=== PATIENT | female | born 1980 | race Hispanic/Latino ===

== ENCOUNTER 2019-02-05 18:39 | Emergency (ER) | payer SELFPAY ==
[2019-02-05 19:16] LABS: APPEARANCE,URINE Cloudy (CLEAR); BILIRUBIN,URINE Negative (NEGATIVE); COLOR,URINE Yellow (YELLOW); GLUCOSE, URINE (UA) Negative (NEGATIVE); KETONES,URINE Negative (NEGATIVE); LEUKOCYTE ESTERASE ,URINE Negative (NEGATIVE); NITRATE,URINE Negative (NEGATIVE); OCCULT BLOOD,URINE Negative (NEGATIVE); PROTEIN,URINE Negative (NEGATIVE); UROBILINOGEN,URINE 0.2 mg/dL (0.2-1.0)
[2019-02-05 19:22] LABS: HCG,QUAL RESULT NEGATIVE (NEGATIVE)
[2019-02-05 19:30] LABS: BACTERIA,URINE Few /HPF (None Seen); RBC,URINE 0-1 /HPF (0-1); WBC,URINE 0-1 /HPF (0-1)
[2019-02-05] MEDS ORDERED: IOHEXOL-350 75 ML VIAL IV ONE (20:34)
[2019-02-05 20:36] LABS: BASOPHILS % (AUTO) 0.3 % (0.0-5.0); EOSINOPHILS % (AUTO) 2.4 % (0.0-8.0); HEMATOCRIT 39.2 % (36-48); LYMPHOCYTES % (AUTO) 13.3 % (21.0-51.0); MEAN CORPUSCULAR HEMOGLOBIN 29.5 pg (27.0-33.0); MEAN CORPUSCULAR HGB CONC 32.8 g/dL (32.0-36.0); MEAN CORPUSCULAR VOLUME 90.1 fL (79-99); MONOCYTES % (AUTO) 6.2 % (3.0-13.0); NEUTROPHILS % (AUTO) 77.8 % (40.0-77.0); PLATELET COUNT (AUTO) 283 K/uL (130-400); RED BLOOD CELL COUNT(AUTO) 4.36 MIL/uL (4.00-5.50); RED CELL DISTRIBUTION WIDTH 14.6 % (11.0-15.5); WHITE BLOOD COUNT (AUTO) 12.8 K/uL (4.8-10.8)
[2019-02-05] MEDS ORDERED: KETOROLAC TROMETHAMINE 30MG/ML ONE (20:41)
[2019-02-05] MEDS ORDERED: SODIUM CHLORIDE 0.9% 1000ML 1,000 ML IV ONE (20:41)
[2019-02-05] MEDS ORDERED: ONDANSETRON HCL 4 MG/2 ML VIAL ONE (20:41)
[2019-02-05] MEDS ORDERED: DICYCLOMINE HCL 10 MG/ML 2ML AMP IM ONE (20:41)
[2019-02-05 20:44] LABS: CREATININE 0.9 mg/dL (0.5-1.5); POTASSIUM 3.8 mmol/L (3.5-5.1)
[2019-02-05 20:45] LABS: INR 0.9 (0.85-1.15); PARTIAL THROMBOPLASTIN TIME 26.6 SEC (26.3-35.5); PROTHROMBIN TIME 9.5 SEC (9.6-11.6)
[2019-02-05 20:48] LABS: ALBUMIN 3.8 g/dL (3.5-5.0); BILIRUBIN,TOTAL 0.3 mg/dL (0.2-1.0)
== END 2019-02-05 23:32 | disposition home or self-care (01) ==
LOC: EDH 18:39
DX: K80.80 Other cholelithiasis without obstruction (principal); R19.7 Diarrhea, unspecified
CPT/HCPCS: 36415; 71045; 74177; 76705; 80053; 81001; 81025; 83605; 83690; 84484; 85025; 85610; 85730; 87040 ×2; 87804 ×2; 96361; 96372; 96374; 96375; 99285; J0500; J1885; J2405; J7030; Q9967

== ENCOUNTER 2019-11-25 21:42 | Inpatient (IN) | payer SELFPAY ==
[~2019-11-25] VITALS: Ht 152.4 cm; Wt 94.0 kg
[2019-11-25 22:21] LABS: BASOPHILS % (AUTO) 0.4 % (0.0-5.0); EOSINOPHILS % (AUTO) 2.4 % (0.0-8.0); HEMATOCRIT 38.6 % (36-48); MEAN CORPUSCULAR HGB CONC 32.6 g/dL (32.0-36.0); MEAN CORPUSCULAR VOLUME 88.7 fL (79-99); MONOCYTES % (AUTO) 6.1 % (3.0-13.0); NEUTROPHILS % (AUTO) 71.7 % (40.0-77.0); PLATELET COUNT (AUTO) 310 K/uL (130-400); RED BLOOD CELL COUNT(AUTO) 4.35 MIL/uL (4.00-5.50); RED CELL DISTRIBUTION WIDTH 14.4 % (11.0-15.5); WHITE BLOOD COUNT (AUTO) 11.9 K/uL (4.8-10.8)
[2019-11-25 22:29] LABS: CREATININE 0.9 mg/dL (0.5-1.5); POTASSIUM 3.8 mmol/L (3.5-5.1)
[2019-11-25] MEDS ORDERED: MAG HYDROX/AL HYDROX/SIMETH ES 30 ML SUSP UDCUP ONE (22:30)
[2019-11-25] MEDS ORDERED: LIDOCAINE HCL 2% VISCOUS 15 ML UDCUP ONE (22:30)
[2019-11-25] MEDS ORDERED: FAMOTIDINE/PF 20 MG/2 ML VIAL IV ONE (22:31)
[2019-11-25] MEDS ORDERED: ONDANSETRON HCL 4 MG/2 ML VIAL ONE (22:31)
[2019-11-25 22:33] LABS: ALBUMIN 3.6 g/dL (3.5-5.0); BILIRUBIN,TOTAL 0.2 mg/dL (0.2-1.0); TOTAL PROTEIN, SERUM 7.3 g/dL (6.0-8.3)
[2019-11-25 22:37] LABS: APPEARANCE,URINE Cloudy (CLEAR); BILIRUBIN,URINE Negative (NEGATIVE); COLOR,URINE Yellow (YELLOW); GLUCOSE, URINE (UA) Negative (NEGATIVE); KETONES,URINE Trace mg/dL (NEGATIVE); LEUKOCYTE ESTERASE ,URINE Trace (NEGATIVE); NITRATE,URINE Negative (NEGATIVE); OCCULT BLOOD,URINE Negative (NEGATIVE); PROTEIN,URINE Negative (NEGATIVE)
[2019-11-25 22:51] LABS: HCG,QUAL RESULT NEGATIVE (NEGATIVE)
[2019-11-25 22:53] LABS: BACTERIA,URINE Few /HPF (None Seen); MUCUS,URINE Moderate LPF (None Seen); RBC,URINE 0-1 /HPF (0-1)
[2019-11-25] MEDS ORDERED: MORPHINE SULFATE 4 MG/1ML SYG ONE (23:24)
[2019-11-26] MEDS ORDERED: ONDANSETRON HCL 4 MG/2 ML VIAL IV PRN
[2019-11-26] MEDS ORDERED: ZOSYN 3.375GM+NS 50ML 50 ML IV ONE (00:11)
[2019-11-26] MEDS ORDERED: CEFTRIAXONE SODIUM 1 GM ONE (00:11)
[2019-11-26] MEDS ORDERED: LACTATED RINGERS 1000ML 1,000 ML IV ONE (00:11)
[2019-11-26] MEDS: CEFTRIAXONE SODIUM 1 GM IVP SCH ×3 (00:15→23:34)
[2019-11-26 01:05] VITALS: BP 111/61
[2019-11-26] MEDS: LACTATED RINGERS 1000ML 1,000 ML IV SCH ×2 (03:37→13:38)
[2019-11-26] MEDS: MORPHINE SULFATE 2 MG/ML 1ML SYG IVP PRN ×2 (03:37→07:40)
[2019-11-26 04:32] VITALS: BP 104/67
[2019-11-26 06:56] LABS: BASOPHILS % (AUTO) 0.4 % (0.0-5.0); EOSINOPHILS % (AUTO) 2.4 % (0.0-8.0); HEMATOCRIT 37.2 % (36-48); LYMPHOCYTES % (AUTO) 28.7 % (21.0-51.0); MEAN CORPUSCULAR HEMOGLOBIN 28.1 pg (27.0-33.0); MEAN CORPUSCULAR HGB CONC 30.4 g/dL (32.0-36.0); MEAN CORPUSCULAR VOLUME 92.5 fL (79-99); MONOCYTES % (AUTO) 6.8 % (3.0-13.0); NEUTROPHILS % (AUTO) 61.3 % (40.0-77.0); PLATELET COUNT (AUTO) 249 K/uL (130-400); RED BLOOD CELL COUNT(AUTO) 4.02 MIL/uL (4.00-5.50); RED CELL DISTRIBUTION WIDTH 14.8 % (11.0-15.5); WHITE BLOOD COUNT (AUTO) 7.8 K/uL (4.8-10.8)
[2019-11-26 07:08] LABS: HEMOGLOBIN A1C 5.9 % (4.0-6.0)
[2019-11-26 07:27] LABS: ALBUMIN 2.9 g/dL (3.5-5.0); BILIRUBIN,TOTAL 0.3 mg/dL (0.2-1.0); CREATININE 0.9 mg/dL (0.5-1.5); POTASSIUM 3.8 mmol/L (3.5-5.1); THYROID STIMULATING HORMONE 11.75 uIU/mL (0.36-3.74); TOTAL PROTEIN, SERUM 6.2 g/dL (6.0-8.3)
[2019-11-26 08:00] VITALS: BP 97/63
[2019-11-26] MEDS: FAMOTIDINE/PF 20 MG/2 ML VIAL IV SCH ×2 (08:43→21:37)
--- NOTE | 2019-11-26 10:10 | NUR ---
SURGERY MELIZA PEÑA PA-C FOR DR. FRIEND IN TO SEE PATIENT. NEW ORDERS RECEIVED AND CARRIED OUT.
[2019-11-26 11:52] VITALS: BP 91/53
--- NOTE | 2019-11-26 13:18 | NUR ---
DC PLAN VISITED WITH PATIENT. PATIENT VENTED. HAD TO RETURN TO SURGERY FOR STERNAL BLEED. ONCE PATIENT IS STABLE AND OUT OF CVR CM WILL CALL SPOUSE. CM WILL CONTINUE TO FOLLOW. Addendum: 11/26/19 at 1319 by ZI PEOPLES RN CM Amended: Links added.
--- NOTE | 2019-11-26 13:21 | NUR ---
NEW DC PLAN DISREGARD PREVIOUS PLAN. PATIENT LIVES WITH X MOTHER IN LAW. INDEPENDENT ABLE TO PERFORM ADL'S. PATIENT HAS NO SERVICES OR DME'S. FEELS SAFE TO RETURN HOME. WILL GIVE LOW INCOME CLINIC INFO. Addendum: 11/26/19 at 1323 by ZI PEOPLES RN CM Amended: Links added.
--- NOTE | 2019-11-26 15:50 | NUR ---
TO NUCLEAR MEDICINE PATIENT TRANSPORTED TO NUCLEAR MEDICINE FOR HIDA SCAN IN STABLE CONDITION.
[2019-11-26 17:25] VITALS: BP 127/95
--- NOTE | 2019-11-26 17:27 | NUR ---
BACK FROM [place] PATIENT IS DONE WITH THE FIRST PART OF THE HIDA SCAN. THE TECH STATES THAT THEY WILL BE BACK TO FINISH THE HIDA SCAN IN ONE HOUR. PATIENT IS STABLE AT THIS TIME.
[2019-11-26 19:00] VITALS: BP 116/76
[2019-11-27] VITALS (7 sets, daily range): BP systolic 108–149; BP diastolic 61–89
[2019-11-27 06:46] LABS: BASOPHILS % (AUTO) 0.4 % (0.0-5.0); EOSINOPHILS % (AUTO) 3.9 % (0.0-8.0); HEMATOCRIT 38.6 % (36-48); LYMPHOCYTES % (AUTO) 23.5 % (21.0-51.0); MEAN CORPUSCULAR HEMOGLOBIN 28.9 pg (27.0-33.0); MEAN CORPUSCULAR HGB CONC 32.1 g/dL (32.0-36.0); MONOCYTES % (AUTO) 6.5 % (3.0-13.0); NEUTROPHILS % (AUTO) 65.3 % (40.0-77.0); PLATELET COUNT (AUTO) 279 K/uL (130-400); RED BLOOD CELL COUNT(AUTO) 4.29 MIL/uL (4.00-5.50); RED CELL DISTRIBUTION WIDTH 14.5 % (11.0-15.5); WHITE BLOOD COUNT (AUTO) 8.3 K/uL (4.8-10.8)
[2019-11-27 07:09] LABS: ALANINE AMINOTRANSFERASE 88 U/L (12-78); ALBUMIN 3.1 g/dL (3.5-5.0); ASPARTATE AMINOTRANSFERASE 45 U/L (10-37); BILIRUBIN,TOTAL 0.5 mg/dL (0.2-1.0); CARBON DIOXIDE 25 mmol/L (21-32); CHLORIDE 105 mmol/L (101-111); CREATININE 0.8 mg/dL (0.5-1.5); GLOMERULAR FILTR. RATE CALC 86 mL/min (>60); GLUCOSE,RANDOM 93 mg/dL (70-105); POTASSIUM 3.5 mmol/L (3.5-5.1); SODIUM SERUM 139 mmol/L (136-145); TOTAL PROTEIN, SERUM 6.7 g/dL (6.0-8.3); UREA NITROGEN, BLOOD 5 mg/dL (7-18)
[2019-11-27] MEDS: LACTATED RINGERS 1000ML 1,000 ML IV SCH ×2 (10:00→17:04)
[2019-11-27] MEDS: FAMOTIDINE/PF 20 MG/2 ML VIAL IV SCH ×2 (10:09→21:16)
[2019-11-27] MEDS: ZOSYN 3.375GM+NS 50ML 50 ML IV SCH ×2 (12:40→21:15)
--- NOTE | 2019-11-27 13:09 | NUR ---
GAVIOTA SMITH PA FOR DR. FRIEND HERE TO SEE PATIENTS. STATES OK TO FEED PATIENT AND PLAN FOR POSSIBLE SURGERY THIS MONDAY.
[2019-11-27] MEDS ORDERED: LORAZEPAM 0.5 MG TABLET PO ONE (15:15)
[2019-11-27] MEDS ORDERED: LORAZEPAM 0.5 MG TABLET PO PRN (15:45)
[2019-11-28 03:33] VITALS: BP 130/83
[2019-11-28 05:56] LABS: BASOPHILS % (AUTO) 0.4 % (0.0-5.0); EOSINOPHILS % (AUTO) 1.5 % (0.0-8.0); HEMATOCRIT 36.1 % (36-48); LYMPHOCYTES % (AUTO) 15.9 % (21.0-51.0); MEAN CORPUSCULAR HGB CONC 31.3 g/dL (32.0-36.0); MEAN CORPUSCULAR VOLUME 89.4 fL (79-99); MONOCYTES % (AUTO) 6.4 % (3.0-13.0); NEUTROPHILS % (AUTO) 75.5 % (40.0-77.0); PLATELET COUNT (AUTO) 280 K/uL (130-400); RED BLOOD CELL COUNT(AUTO) 4.04 MIL/uL (4.00-5.50); RED CELL DISTRIBUTION WIDTH 14.5 % (11.0-15.5)
[2019-11-28] MEDS: ZOSYN 3.375GM+NS 50ML 50 ML IV SCH ×2 (06:00→14:18)
[2019-11-28] MEDS: LACTATED RINGERS 1000ML 1,000 ML IV SCH (06:01)
[2019-11-28 06:16] LABS: ALBUMIN 3.3 g/dL (3.5-5.0); BILIRUBIN,DIRECT 0.1 mg/dL (0.0-0.3); BILIRUBIN,TOTAL 0.3 mg/dL (0.2-1.0); POTASSIUM 3.5 mmol/L (3.5-5.1); TOTAL PROTEIN, SERUM 6.8 g/dL (6.0-8.3)
[2019-11-28 07:52] VITALS: BP 105/76
[2019-11-28] MEDS: FAMOTIDINE/PF 20 MG/2 ML VIAL IV SCH (10:20)
[2019-11-28 11:33] VITALS: BP 118/73
[2019-11-28 16:43] VITALS: BP 119/74
[2019-11-28] MEDS ORDERED: PANT40TA PO (16:52)
[2019-11-28] MEDS ORDERED: AMOX-426 PO (16:52)
== END 2019-11-28 16:00 | disposition home or self-care (01) | DRG 445 ==
LOC: EDH 21:42 → EDHIP 21:43 → 3DH 11-26 00:18
PROVIDERS: ADMIT Internal Medicine; ATTEND Internal Medicine
DX: K80.00 Calculus of gallbladder with acute cholecystitis without obstruction (principal); N39.0 Urinary tract infection, site not specified; Z68.39 Body mass index [BMI] 39.0-39.9, adult; E66.01 Morbid (severe) obesity due to excess calories; F12.90 Cannabis use, unspecified, uncomplicated; K76.0 Fatty (change of) liver, not elsewhere classified; Z82.0 Family history of epilepsy and other diseases of the nervous system; Z82.3 Family history of stroke; Z82.49 Family history of ischemic heart disease and other diseases of the circulatory system; Z82.5 Family history of asthma and other chronic lower respiratory diseases; Z83.3 Family history of diabetes mellitus
CPT/HCPCS: 36415; 76705; 78226; 80048; 80053; 80061; 80076; 81001; 81025; 83036; 83690; 84145; 84443; 85025; 87088; 87324; A9537; G0378; J0696; J2270; J2405; J2543; J3490; J7120